=== PATIENT | female | born 1980 | race Caucasian/White ===

== ENCOUNTER 2020-05-29 12:39 | Emergency (ER) | payer MEDICAID, SELFPAY ==
[2020-05-29 12:48] VITALS: BP 138/86; PULSE 84; RESP 20; TEMP 37; O2SAT 94; BMI 56.7
--- NOTE | 2020-05-29 13:05 | W.ED.GENADLT ---
HPI - General Adult General: Chief complaint: General Medical Stated complaint: needs bc removed Time Seen by Provider: 05/29/20 12:58 History of Present Illness: HPI narrative: Patient wants get Implanon removed Review of Systems Narrative: Tired of having Implanon in her arm Physical Exam Narrative: EXAM NARRATIVE: Patient is healthy alert neurologic appears intact explained to her that we do not remove Implanon here in the ER to follow-up with [facility] which she said can get her into July and I advised her that is still okay to wait July to get these removed Course Vital Signs: Vital signs: Vital Signs Temperature 98.6 F 05/29/20 12:48 Pulse Rate 84 05/29/20 12:48 Respiratory Rate 20 H 05/29/20 12:48 Blood Pressure 138/86 05/29/20 12:48 Pulse Oximetry 94 05/29/20 12:48 Discharge Plan Discharge Patient Disposition: Home Clinical Impression: Implanon in place Condition: Stable Discharge Orders: Discharge Order (Routine); Ordered 05/29/20 Ordered By: Silvano Zepeda Discharge Diet: Usual diet Discharge Activity: Resume usual activity Activity Restrictions/Additional Instructions: Clinic appointment [facility] and get that removed in July when they were able to get you in. Coding Level of Care Code ED Field Sales Agent for Venkata Jordan
[2020-05-29 13:49] VITALS: BP 136/74; PULSE 78; RESP 18; O2SAT 98
== END 2020-05-29 13:50 | disposition home or self-care (01) ==
PROVIDERS: Emergency Provider Nurse Practitioner Family
DX: Z79.3 Long term (current) use of hormonal contraceptives (principal)
CPT/HCPCS: 12345; 99281

== ENCOUNTER → 2020-12-01 16:35 | Outpatient (BNVA) | payer MEDICAID, SELFPAY | PROVIDERS: Visit Provider Registered Nurse | DX: E66.01 Morbid (severe) obesity due to excess calories (principal); Z68.44 Body mass index [BMI] 60.0-69.9, adult; Z79.1 Long term (current) use of non-steroidal anti-inflammatories (NSAID) | CPT/HCPCS: 80053; 85025 ==

== ENCOUNTER → 2021-01-06 11:13 | Outpatient (BNVA) | payer MEDICAID, SELFPAY | PROVIDERS: Visit Provider Registered Nurse | DX: E11.65 Type 2 diabetes mellitus with hyperglycemia (principal); E66.01 Morbid (severe) obesity due to excess calories; Z68.44 Body mass index [BMI] 60.0-69.9, adult | CPT/HCPCS: 80061; 83036 ==

== ENCOUNTER → 2021-01-21 08:47 | Outpatient (BNVA) | payer MEDICAID, SELFPAY | PROVIDERS: Referring Provider Registered Nurse; Visit Provider Podiatrist Foot & Ankle Surgery | DX: M25.572 Pain in left ankle and joints of left foot (principal) | CPT/HCPCS: 73590; 73610 ==

== ENCOUNTER 2021-07-20 08:47 | Outpatient (CLI) | payer MEDICAID, SELFPAY ==
--- NOTE | 2021-07-20 08:52 | FL_ITS ---
WS: [id number] UPPER GI WITH AIR TECHNICAL: Double contrast upper GI FLUOROSCOPY TIME: 2.2 minutes CLINICAL INFORMATION: K21.9 - Gastro-esophageal reflux disease without esophagitis COMPARISON: None. FINDINGS: Swallowing: Normal. Esophagus: Moderate esophageal dysmotility with delayed emptying. Tertiary contractions in the distal esophagus. Gastroesophageal reflux: Mild reflux thoracic esophagus only seen in the supine position. Moderate es ophageal hiatal hernia. Stomach: Normal double contrast stomach with normal emptying. Duodenum: Normal duodenal C-loop. Other findings: None. FL/FL upper GI w air* [id number] IMPRESSION: 1. Moderate esophageal dysmotility with delayed emptying on the upright view. Associated tertiary contractions in the distal esophagus. 2. Mild reflux into the distal esophagus only seen on the supine imaging. 3. Moderate esophageal hiatal hernia. 4. Normal double contrast stomach and duodenum.
== END 2021-07-20 08:48 | disposition home or self-care (01) ==
PROVIDERS: PCP Registered Nurse; Visit Provider Surgery
DX: K21.9 Gastro-esophageal reflux disease without esophagitis (principal); K44.9 Diaphragmatic hernia without obstruction or gangrene
CPT/HCPCS: 74246

== ENCOUNTER → 2021-08-13 13:20 | Outpatient (BNVA) | payer OTHER, SELFPAY | PROVIDERS: PCP Registered Nurse; Visit Provider Surgery | DX: Z20.822 Contact with and (suspected) exposure to COVID-19 (principal) | CPT/HCPCS: 87635 ==

== ENCOUNTER 2021-08-19 07:52 | Day surgery (SDC) | payer MEDICAID, SELFPAY ==
[2021-08-17 12:54] VITALS: BMI 57.8
--- NOTE | 2021-08-19 08:02 | ANES.PREANE2 ---
Pre-Anesthetic Assessment Pre-Anesthetic Assessment: Height/Weight: Height 1.55 m Weight 138.799 kg Preop Diagnosis: gerd Proposed Procedure: Operation Date: 08/19/21 09:15 Proposed Procedures p EGD 39195 R21.9(Not Applicable) - Mehran Rao MD Familial anesthetic complications: none Was Beta Connor taken within 24 hours: N/A Was Clonidine taken within 24 hours: N/A Last intake: > 8 hrs Social: Social History: No alcohol and No tobacco Exam: Pre-Anes Outpt Exam: alert, oriented x 3, clear to auscultation bilaterally and regular rate & rhythm Airway: Cervical ROM: WNL MP: 4 Dentition: Partials Additional comments: large tongue and neck circumference Metabolic: Metabolic: DM (patient denies - poor historian) and Morbid obesity Anesthetic Plan: ASA status: 3 Anesthesia: MAC Risk of > 500 ml blood loss (7ml/kg in children): No PFSH Anesthesia PFSH: Medical History Closed fracture of medial malleolus of left tibia Encntr long-term NSAID use Pain in joint involving multiple sites Family History Mother Hypothyroidism Hypertension Sister Hypothyroidism Social History Second hand smoke exposure: No Alcohol intake: never Lives independently: Yes Household members: spouse and children Marital status: Number of children: 8 Data Anesthesia Cardiac Studies: No Data to Display
[2021-08-19 08:35] VITALS: BP 148/100; PULSE 82; RESP 18; TEMP 36.1; O2SAT 97
[2021-08-19 08:43] LABS: OR HCG Qualitative Urine Negative (Negative)
[2021-08-19] MEDS: sodium chloride 0.9% 1,000 ML 30 ML IV (08:48)
--- NOTE | 2021-08-19 09:39 | W.PM.OPSFHP ---
Same Day Surgery H&P Indication for Procedure/HPI DATE OF PROCEDURE: August 19, 2021 CHIEF COMPLAINT/INDICATIONFOR SURGICAL PROCEDURE: Acid reflux PREOP DIAGNOSIS: gerd PLANNED PROCEDRUE: Operation Date: 08/19/21 09:15 Proposed Procedures p EGD 12900 R21.9(Not Applicable) - Mehran Rao MD This is a pleasant 41 years old female patient morbidly obese with a current weight of 306 pounds and a BMI 57.8. Patient comes today for diagnostic EGD because of her chronic GERD associated with her morbid obesity status. Patient is interested in weight loss surgery. ROS All systems have been reviewed negative except as per the above or per problem list Medications/Allergies* Allergies/Adverse Reactions Allergy/AdvReac Type Severity Reaction Status Date / Time No Known Allergies Allergy Verified 08/19/21 09:40 Current Medications: Generic Name Dose Route Start Last Admin Trade Name Freq PRN Reason Stop Dose Admin Sodium Chloride 1,000 mls @ 30 mls/hr 08/19/21 05:30 08/19/21 08:48 Sodium Chloride 0.9% IV 08/20/21 05:29 30 mls/hr .Q24H BLANCO Administration Pertinent History/Comorbid Conditions* Medical History (Updated 06/05/21 @ 14:34 by Mehran Rao MD) Closed fracture of medial malleolus of left tibia Encntr long-term NSAID use Pain in joint involving multiple sites Family History (Updated 06/11/20 @ 14:53 by OBIE Giles) Hypothyroidism Mother Sister Hypertension Mother Social History Second hand smoke exposure: No Alcohol intake: never Lives independently: Yes Household members: spouse and children Marital status: Number of children: 8 Pertinent Exam Findings alert, oriented x 3, regular rate & rhythm and procedure specific exam findings (Abdominal examination nontender nondistended soft, morbidly obese) Recommendations Surgery/Procedure today (EGD with possible biopsy) Other Plans: Plan of care; After thorough history and physical examination and reviewing the chart, plan to perform a diagnostic esophagogastroduodenoscopy with possible biopsy in the GI lab. I discussed with the patient in detail the risk,benefits,alternatives and indications.The risk of aspiration, bleeding, soft tissue injury, perforation of the stomach/esophagus and other potential concomitant complications were explained to the patient in details,aslo the potential need for Thoracic and or Abdominal surgery to repair any complications.The patient understood this well and did agree to proceed. Rationale was carefully and clearly discussed with the patient.Appropriate informed consent have been reviewed and signed All questions have been answered and all concerns have been addressed to patient's satisfaction. Coding Level of Care Code Acute Deputy Director Of Public Works for Venkata Jordan
[2021-08-19 10:00] VITALS: PULSE 87
[2021-08-19 10:01] VITALS: BP 136/95; RESP 18; TEMP 36.1; O2SAT 98
[2021-08-19 10:18] VITALS: BP 124/96; PULSE 85; RESP 18; O2SAT 99
--- NOTE | 2021-08-19 15:38 | ANE.PACU2 ---
Inpatient post-anesthesia follow up: Airway intact: Yes Vital signs: Temperature 97.0 F Pulse Rate 85 Respiratory Rate 18 Blood Pressure 124/96 Pulse Oximetry 99 Oxygen Delivery Me thod Room Air Oxygen Flow Rate Fraction of Inspir ed Oxygen Hydration adequate: Yes Nausea and vomiting: No Pain level: 2 Mental status: Baseline
== END 2021-08-19 10:45 | disposition home or self-care (01) ==
PROVIDERS: Anesthesiology; PCP Registered Nurse; Visit Provider Surgery
PROC: 0DJ08ZZ Inspection of Upper Intestinal Tract, Via Natural or Artificial Opening Endoscopic (ICD-10-PCS; CPT 43235; principal; 2021-08-19 09:15)
DX: R93.5 Abnormal findings on diagnostic imaging of other abdominal regions, including retroperitoneum (principal); K21.9 Gastro-esophageal reflux disease without esophagitis; E66.01 Morbid (severe) obesity due to excess calories; Z68.43 Body mass index [BMI] 50.0-59.9, adult; K30 Functional dyspepsia; K44.9 Diaphragmatic hernia without obstruction or gangrene; E11.9 Type 2 diabetes mellitus without complications; K29.50 Unspecified chronic gastritis without bleeding; A04.8 Other specified bacterial intestinal infections
CPT/HCPCS: 43239; 84703; 88305; 96360; J2704; J7030

== ENCOUNTER → 2021-11-17 13:58 | Outpatient (BNVA) | payer BC, MEDICAID, SELFPAY | PROVIDERS: PCP Registered Nurse; Visit Provider Registered Nurse | DX: R53.83 Other fatigue (principal) | CPT/HCPCS: 80053; 82607; 84443 ==